=== PATIENT | female | born 1935 | race American Indian/Alaskan Native ===

== ENCOUNTER 2016-12-18 13:02 | Outpatient (CLI) | payer MEDICARE ==
[2016-12-18] MEDS ORDERED: XYLOCAINE TOPICAL 4% TP ONE ×2 (13:22→14:29)
== END 2016-12-18 13:03 | disposition home or self-care (01) ==
LOC: WOUND 13:02
PROVIDERS: ATTEND Surgery
DX: I87.2 Venous insufficiency (chronic) (peripheral) (principal); L97.821 Non-pressure chronic ulcer of other part of left lower leg limited to breakdown of skin; E11.622 Type 2 diabetes mellitus with other skin ulcer; I10 Essential (primary) hypertension; Z86.73 Personal history of transient ischemic attack (TIA), and cerebral infarction without residual deficits; Z90.710 Acquired absence of both cervix and uterus
CPT/HCPCS: 11042; G0463

== ENCOUNTER 2016-12-26 10:59 | Outpatient (CLI) | payer MEDICARE ==
[2016-12-26] MEDS ORDERED: XYLOCAINE TOPICAL 4% TP ONE ×2 (11:20)
== END 2016-12-26 11:00 | disposition home or self-care (01) ==
LOC: WOUND 10:59
PROVIDERS: ATTEND Podiatrist
DX: I87.312 Chronic venous hypertension (idiopathic) with ulcer of left lower extremity (principal); E11.622 Type 2 diabetes mellitus with other skin ulcer; L97.822 Non-pressure chronic ulcer of other part of left lower leg with fat layer exposed; Z86.73 Personal history of transient ischemic attack (TIA), and cerebral infarction without residual deficits; Z90.710 Acquired absence of both cervix and uterus

== ENCOUNTER 2016-12-26 13:25 | Outpatient (CLI) | payer MEDICARE | END 2016-12-26 13:26 | disposition home or self-care (01) | LOC: LAB 13:25 | PROVIDERS: ATTEND Surgery | DX: E11.9 Type 2 diabetes mellitus without complications (principal); I10 Essential (primary) hypertension | CPT/HCPCS: 36415; 83036 ==

== ENCOUNTER 2017-01-01 09:36 | Outpatient (CLI) | payer MEDICARE ==
[2017-01-01] MEDS ORDERED: XYLOCAINE TOPICAL 4% TP ONE ×2 (10:44)
== END 2017-01-01 09:37 | disposition home or self-care (01) ==
LOC: WOUND 09:36
PROVIDERS: ATTEND Nurse Practitioner
DX: I87.312 Chronic venous hypertension (idiopathic) with ulcer of left lower extremity (principal); E11.622 Type 2 diabetes mellitus with other skin ulcer; L97.822 Non-pressure chronic ulcer of other part of left lower leg with fat layer exposed; Z86.73 Personal history of transient ischemic attack (TIA), and cerebral infarction without residual deficits

== ENCOUNTER 2017-01-09 10:28 | Outpatient (CLI) | payer MEDICARE ==
[2017-01-09] MEDS ORDERED: XYLOCAINE TOPICAL 4% TP ONE (11:29)
== END 2017-01-09 10:29 | disposition home or self-care (01) ==
LOC: WOUND 10:28
PROVIDERS: ATTEND Podiatrist
DX: E11.622 Type 2 diabetes mellitus with other skin ulcer (principal); I87.312 Chronic venous hypertension (idiopathic) with ulcer of left lower extremity; I70.213 Atherosclerosis of native arteries of extremities with intermittent claudication, bilateral legs; L97.822 Non-pressure chronic ulcer of other part of left lower leg with fat layer exposed; S80.821A Blister (nonthermal), right lower leg, initial encounter; Z86.73 Personal history of transient ischemic attack (TIA), and cerebral infarction without residual deficits; X58.XXXD Exposure to other specified factors, subsequent encounter
CPT/HCPCS: 82962

== ENCOUNTER 2017-01-15 13:23 | Outpatient (CLI) | payer MEDICARE ==
[2017-01-15] MEDS ORDERED: XYLOCAINE TOPICAL 4% TP ONE ×2 (14:15→14:17)
== END 2017-01-15 13:24 | disposition home or self-care (01) ==
LOC: WOUND 13:23
PROVIDERS: ATTEND Nurse Practitioner
DX: I87.312 Chronic venous hypertension (idiopathic) with ulcer of left lower extremity (principal); L97.822 Non-pressure chronic ulcer of other part of left lower leg with fat layer exposed; E11.622 Type 2 diabetes mellitus with other skin ulcer; I70.213 Atherosclerosis of native arteries of extremities with intermittent claudication, bilateral legs; Z86.73 Personal history of transient ischemic attack (TIA), and cerebral infarction without residual deficits

== ENCOUNTER 2017-07-24 08:11 | Outpatient (CLI) | payer MEDICARE ==
[2017-07-24] MEDS ORDERED: XYLOCAINE TOPICAL 4% TP ONE (08:52)
== END 2017-07-24 08:12 | disposition home or self-care (01) ==
LOC: WOUND 08:11
PROVIDERS: ATTEND Podiatrist
DX: I70.248 Atherosclerosis of native arteries of left leg with ulceration of other part of lower leg (principal); E11.622 Type 2 diabetes mellitus with other skin ulcer; L97.822 Non-pressure chronic ulcer of other part of left lower leg with fat layer exposed; I10 Essential (primary) hypertension; Z86.73 Personal history of transient ischemic attack (TIA), and cerebral infarction without residual deficits
CPT/HCPCS: 11042; G0463

== ENCOUNTER 2017-07-29 13:27 | Outpatient (CLI) | payer MEDICARE ==
[2017-07-29] MEDS ORDERED: XYLOCAINE TOPICAL 4% TP ONE (14:02)
== END 2017-07-29 13:28 | disposition home or self-care (01) ==
LOC: WOUND 13:27
PROVIDERS: ATTEND Surgery
DX: I70.248 Atherosclerosis of native arteries of left leg with ulceration of other part of lower leg (principal); E11.622 Type 2 diabetes mellitus with other skin ulcer; L97.822 Non-pressure chronic ulcer of other part of left lower leg with fat layer exposed; I10 Essential (primary) hypertension; Z86.73 Personal history of transient ischemic attack (TIA), and cerebral infarction without residual deficits
CPT/HCPCS: 29580

== ENCOUNTER 2017-08-05 11:18 | Outpatient (CLI) | payer MEDICARE ==
[2017-08-05] MEDS ORDERED: XYLOCAINE TOPICAL 4% TP ONE (11:39)
== END 2017-08-05 11:19 | disposition home or self-care (01) ==
LOC: WOUND 11:18
PROVIDERS: ATTEND Surgery
DX: I70.248 Atherosclerosis of native arteries of left leg with ulceration of other part of lower leg (principal); E11.622 Type 2 diabetes mellitus with other skin ulcer; L97.822 Non-pressure chronic ulcer of other part of left lower leg with fat layer exposed; I10 Essential (primary) hypertension; Z86.73 Personal history of transient ischemic attack (TIA), and cerebral infarction without residual deficits
CPT/HCPCS: 29580

== ENCOUNTER 2017-08-26 10:47 | Outpatient (CLI) | payer MEDICARE ==
[2017-08-26] MEDS ORDERED: XYLOCAINE TOPICAL 4% TP ONE (11:29)
== END 2017-08-26 10:48 | disposition home or self-care (01) ==
LOC: WOUND 10:47
PROVIDERS: ATTEND Surgery
DX: I70.248 Atherosclerosis of native arteries of left leg with ulceration of other part of lower leg (principal); E11.622 Type 2 diabetes mellitus with other skin ulcer; L97.822 Non-pressure chronic ulcer of other part of left lower leg with fat layer exposed; I10 Essential (primary) hypertension; Z86.73 Personal history of transient ischemic attack (TIA), and cerebral infarction without residual deficits; Z90.710 Acquired absence of both cervix and uterus
CPT/HCPCS: 29580

== ENCOUNTER 2017-09-02 11:38 | Outpatient (CLI) | payer MEDICARE ==
[2017-09-02] MEDS ORDERED: XYLOCAINE TOPICAL 4% TP ONE ×2 (11:49→11:51)
== END 2017-09-02 11:39 | disposition home or self-care (01) ==
LOC: WOUND 11:38
PROVIDERS: ATTEND Surgery
DX: I70.248 Atherosclerosis of native arteries of left leg with ulceration of other part of lower leg (principal); E11.622 Type 2 diabetes mellitus with other skin ulcer; L97.822 Non-pressure chronic ulcer of other part of left lower leg with fat layer exposed; I10 Essential (primary) hypertension; Z86.73 Personal history of transient ischemic attack (TIA), and cerebral infarction without residual deficits; Z90.710 Acquired absence of both cervix and uterus
CPT/HCPCS: 29580

== ENCOUNTER 2017-09-09 11:11 | Outpatient (CLI) | payer MEDICARE ==
[2017-09-09] MEDS ORDERED: XYLOCAINE TOPICAL 4% TP ONE (11:38)
== END 2017-09-09 11:12 | disposition home or self-care (01) ==
LOC: WOUND 11:11
PROVIDERS: ATTEND Surgery
DX: I70.248 Atherosclerosis of native arteries of left leg with ulceration of other part of lower leg (principal); E11.622 Type 2 diabetes mellitus with other skin ulcer; L97.822 Non-pressure chronic ulcer of other part of left lower leg with fat layer exposed; I10 Essential (primary) hypertension; Z86.73 Personal history of transient ischemic attack (TIA), and cerebral infarction without residual deficits; Z90.710 Acquired absence of both cervix and uterus
CPT/HCPCS: 29580

== ENCOUNTER 2017-09-16 11:09 | Outpatient (CLI) | payer MEDICARE ==
[2017-09-16] MEDS ORDERED: XYLOCAINE TOPICAL 4% TP ONE ×2 (11:25→11:26)
== END 2017-09-16 11:10 | disposition home or self-care (01) ==
LOC: WOUND 11:09
PROVIDERS: ATTEND Surgery
DX: I70.248 Atherosclerosis of native arteries of left leg with ulceration of other part of lower leg (principal); E11.622 Type 2 diabetes mellitus with other skin ulcer; L97.822 Non-pressure chronic ulcer of other part of left lower leg with fat layer exposed; I10 Essential (primary) hypertension; Z86.73 Personal history of transient ischemic attack (TIA), and cerebral infarction without residual deficits; Z90.710 Acquired absence of both cervix and uterus
CPT/HCPCS: 29580

== ENCOUNTER 2017-09-23 11:22 | Outpatient (CLI) | payer MEDICARE | END 2017-09-23 11:23 | disposition home or self-care (01) | LOC: WOUND 11:22 | PROVIDERS: ATTEND Surgery | DX: I70.248 Atherosclerosis of native arteries of left leg with ulceration of other part of lower leg (principal); E11.622 Type 2 diabetes mellitus with other skin ulcer; L97.828 Non-pressure chronic ulcer of other part of left lower leg with other specified severity; I10 Essential (primary) hypertension; Z86.73 Personal history of transient ischemic attack (TIA), and cerebral infarction without residual deficits; Z90.710 Acquired absence of both cervix and uterus | CPT/HCPCS: 99214; G0463 ==

== ENCOUNTER 2019-05-05 09:27 | Outpatient (CLI) | payer MEDICARE | END 2019-05-05 09:28 | disposition home or self-care (01) | LOC: WOUND 09:27 | PROVIDERS: ATTEND Surgery | DX: E11.622 Type 2 diabetes mellitus with other skin ulcer (principal); L97.212 Non-pressure chronic ulcer of right calf with fat layer exposed; I10 Essential (primary) hypertension; Z86.73 Personal history of transient ischemic attack (TIA), and cerebral infarction without residual deficits; Z90.710 Acquired absence of both cervix and uterus | CPT/HCPCS: 11042; 11045; G0463; 82962; 99204; 99214 ==

== ENCOUNTER 2019-05-24 07:55 | Outpatient (CLI) | payer MEDICARE ==
[2019-05-24] MEDS ORDERED: LIDOCAINE (4%) 40 MG/ML TOPICAL SOLN 50 ML BOTTLE TP ONE (09:00)
== END 2019-05-24 07:56 | disposition home or self-care (01) ==
LOC: WOUND 07:55
PROVIDERS: ATTEND Surgery
DX: E11.622 Type 2 diabetes mellitus with other skin ulcer (principal); L97.212 Non-pressure chronic ulcer of right calf with fat layer exposed; I10 Essential (primary) hypertension; Z86.73 Personal history of transient ischemic attack (TIA), and cerebral infarction without residual deficits; Z90.710 Acquired absence of both cervix and uterus
CPT/HCPCS: 82962

== ENCOUNTER 2021-01-09 10:01 | Outpatient (CLI) | payer MEDICARE ==
[2021-01-09] MEDS ORDERED: LIDOCAINE (4%) 40 MG/ML TOPICAL SOLN 50 ML BOTTLE TP ONE (10:27)
[2021-01-09] MEDS ORDERED: SODIUM HYPOCHLORITE, DAKIN'S FULL STRENGTH (0.5%) 473 ML TOPICAL SOLN TP ONE (12:07)
== END 2021-01-09 10:02 | disposition home or self-care (01) ==
LOC: WOUND 10:01
PROVIDERS: ATTEND Surgery
DX: E11.622 Type 2 diabetes mellitus with other skin ulcer (principal); L97.812 Non-pressure chronic ulcer of other part of right lower leg with fat layer exposed; E11.621 Type 2 diabetes mellitus with foot ulcer; L97.422 Non-pressure chronic ulcer of left heel and midfoot with fat layer exposed; I11.0 Hypertensive heart disease with heart failure; I50.9 Heart failure, unspecified; Z86.73 Personal history of transient ischemic attack (TIA), and cerebral infarction without residual deficits; Z90.710 Acquired absence of both cervix and uterus; Z90.49 Acquired absence of other specified parts of digestive tract
CPT/HCPCS: 11042; 11045; G0463; 99214

== ENCOUNTER 2021-01-30 08:34 | Outpatient (CLI) | payer MEDICARE ==
[2021-01-30] MEDS ORDERED: LIDOCAINE (4%) 40 MG/ML TOPICAL SOLN 50 ML BOTTLE TP ONE (08:56)
[2021-01-30] MEDS ORDERED: SODIUM HYPOCHLORITE, DAKIN'S FULL STRENGTH (0.5%) 473 ML TOPICAL SOLN TP ONE (09:33)
[2021-01-30] MEDS ORDERED: SILVER NITRATE APPLICATOR 1 EA TP ONE (09:47)
== END 2021-01-30 08:35 | disposition home or self-care (01) ==
LOC: WOUND 08:34
PROVIDERS: ATTEND Surgery
DX: E11.622 Type 2 diabetes mellitus with other skin ulcer (principal); L97.812 Non-pressure chronic ulcer of other part of right lower leg with fat layer exposed; E11.621 Type 2 diabetes mellitus with foot ulcer; L97.422 Non-pressure chronic ulcer of left heel and midfoot with fat layer exposed; I11.0 Hypertensive heart disease with heart failure; I50.9 Heart failure, unspecified; Z86.73 Personal history of transient ischemic attack (TIA), and cerebral infarction without residual deficits; Z90.710 Acquired absence of both cervix and uterus; Z90.49 Acquired absence of other specified parts of digestive tract

== ENCOUNTER 2021-07-23 11:49 | Emergency (ER) | payer MEDICARE ==
[2021-07-23] MEDS ORDERED: HYDROmorphone 1 MG/1 ML INJ IM ONE (13:30)
[2021-07-23] MEDS ORDERED: MORPHINE 4 MG/1 ML INJ IM ONE (13:31)
--- NOTE | 2021-07-23 13:31 | Emergency Department Report ---
ED General Adult HPI - General Chief complaint: Psych Stated complaint: History obtained from family Time Seen by Provider: 07/23/21 12:51 Source: patient, family, EMS ([facility]), RN notes reviewed Mode of arrival: Stretcher Limitations: Altered Mental Status, Physical Limitation, Other (Patient is agitated and a poor historian) - History of Present Illness Initial comments: The patient is an 86-year-old female. She is accompanied by her son, Mr. Britton Levy; [phone] who provides the history of present illness. The patient's past medical history includes congestive heart failure, diabetes, hypertension, and "really bad infection in the foot.", As per the patient's son. The patient's son has been on [facility] for the past 3 weeks, and is currently on home antibiotics for a presumed infection in the right foot, but he does not know the name of the antibiotic. He also reports that the patient is currently a DO NOT RESUSCITATE. He brings the patient to the emergency room today because he reports the patient is agitated, and yelling. He also reports that she is itching and scratching. This has been going on for 2 weeks. He specifically reports that the patient has indicated in her goals of care that she does not want surgery or invasive measures. The patient's son is agreeable to comfort care, and supportive measures. He is also agreeable to basic laboratory studies here in the emergency room, as well as a noncontrast CT scan of the brain for work-up/evaluation. He reports that he does not want his mother to receive a straight catheter for urinalysis acquisition. The patient herself is disorganized, delirious, demented, and a poor historian. -: days(s), week(s) - Related Data Home Medications Medication Instructions Recorded Confirmed Last Taken Acetaminophen 650 mg PO QDAY PRN 07/23/21 07/23/21 Unknown Albuterol Sulfate 90 mcg INHALATION Q4HR 07/23/21 07/23/21 Unknown Amoxicillin 875 mg PO QDAY 07/23/21 07/23/21 Unknown Ativan 0.5 mg PO QDAY PRN 07/23/21 07/23/21 Unknown Atorvastatin 40 mg PO QHS 07/23/21 07/23/21 Unknown Bumetanide 2 mg tab 2 mg PO QDAY 07/23/21 07/23/21 Unknown Doxycycline Hyclate 100 mg PO QDAY 07/23/21 07/23/21 Unknown Haldol 0.05 mg PO QDAY PRN 07/23/21 07/23/21 Unknown Hydroxyzine HCl 50 mg PO QDAY 07/23/21 07/23/21 Unknown Hyoscyamine (Nf) 0.125 mg PO QDAY 07/23/21 07/23/21 Unknown Jardiance 10 mg SC DAILY 07/23/21 07/23/21 Unknown Klor-Con 10 40 mg PO QDAY 07/23/21 07/23/21 Unknown Melatonin 3 mg PO QHS PRN 07/23/21 07/23/21 Unknown Morphine 100 mg PO 07/23/21 Unknown Percocet 5/325 mg 5 mg PO QDAY PRN 07/23/21 07/23/21 Unknown Prednisone 20 mg PO 07/23/21 Unknown Promethazine 25 mg PO 07/23/21 Unknown Triamcinolone Acetonide 1 07/23/21 Unknown Xarelto 15 mg PO QDAY 07/23/21 07/23/21 Unknown amLODIPine 2.5 mg PO QDAY 07/23/21 07/23/21 Unknown bisacodyL 10 mg PO QDAY 07/23/21 07/23/21 Unknown Allergies Allergy/AdvReac Type Severity Reaction Status Date / Time grass pollen-perennial rye, Allergy Unknown Verified 07/23/21 11:54 standar [grass poll-perennial rye,std] house dust Allergy Shortness Verified 07/23/21 11:54 of Breath ED Review of Systems ROS: Stated complaint: EXCITED DELIRIUM Other details as noted in HPI Comment: Per family Constitutional: denies: fever Respiratory: denies: cough Cardiovascular: denies: syncope Gastrointestinal: denies: nausea, vomiting, diarrhea Genitourinary: denies: frequency Skin: rash, lesions Psychiatric: anxiety ED Past Medical Hx - Past Medical History Previous Medical History?: Yes Hx Hypertension: Yes Hx CVA: Yes Hx Diabetes: Yes - Surgical History Additional Surgical History: Removal of skin tags from body - Social History Smoking Status: Never Smoker Substance Use Type: None - Medications Home Medications: Home Medications Medication Instructions Recorded Confirmed Last Taken Type Acetaminophen 650 mg PO QDAY PRN 07/23/21 07/23/21 Unknown History Albuterol Sulfate 90 mcg INHALATION Q4HR 07/23/21 07/23/21 Unknown History Amoxicillin 875 mg PO QDAY 07/23/21 07/23/21 Unknown History Ativan 0.5 mg PO QDAY PRN 07/23/21 07/23/21 Unknown History Atorvastatin 40 mg PO QHS 07/23/21 07/23/21 Unknown History Bumetanide 2 mg tab 2 mg PO QDAY 07/23/21 07/23/21 Unknown History Doxycycline Hyclate 100 mg PO QDAY 07/23/21 07/23/21 Unknown History Haldol 0.05 mg PO QDAY PRN 07/23/21 07/23/21 Unknown History Hydroxyzine HCl 50 mg PO QDAY 07/23/21 07/23/21 Unknown History Hyoscyamine (Nf) 0.125 mg PO QDAY 07/23/21 07/23/21 Unknown History Jardiance 10 mg SC DAILY 07/23/21 07/23/21 Unknown History Klor-Con 10 40 mg PO QDAY 07/23/21 07/23/21 Unknown History Melatonin 3 mg PO QHS PRN 07/23/21 07/23/21 Unknown History Morphine 100 mg PO 07/23/21 Unknown History Percocet 5/325 mg 5 mg PO QDAY PRN 07/23/21 07/23/21 Unknown History Prednisone 20 mg PO 07/23/21 Unknown History Promethazine 25 mg PO 07/23/21 Unknown History Triamcinolone Acetonide 1 07/23/21 Unknown History Xarelto 15 mg PO QDAY 07/23/21 07/23/21 Unknown History amLODIPine 2.5 mg PO QDAY 07/23/21 07/23/21 Unknown History bisacodyL 10 mg PO QDAY 07/23/21 07/23/21 Unknown History ED Physical Exam - General Limitations: Other (Patient is agitated) General appearance: anxious - Head Head exam: Present: atraumatic, normocephalic - Eye Eye exam: Present: normal appearance, EOMI. Absent: nystagmus - ENT ENT exam: Present: normal exam, normal orophraynx, mucous membranes moist, norm al external ear exam - Neck Neck exam: Present: normal inspection, full ROM. Absent: tenderness, meningismus - Respiratory Respiratory exam: Absent: respiratory distress, wheezes, rales, rhonchi, stridor, decreased breath sounds - Cardiovascular Cardiovascular Exam: Present: bradycardia, irregular rhythm. Absent: systolic murmur, diastolic murmur, rubs, gallop - GI/Abdominal GI/Abdominal exam: Present: soft. Absent: distended, tenderness, guarding, rebound, rigid, pulsatile mass - Rectal Rectal exam: Present: other (Chaperoned by nurse Alejandrina Casey. Pressure ulcers noted. There is no necrosis noted. Gluteal compartments are tender). Absent: normal inspection - External exam: Present: normal external exam (Chaperoned by nurse Alejandrina Casye) - Extremities Exam Extremities exam: Present: full ROM. Absent: normal inspection (There is a large necrotic wound noted on the right posterior heel. Chronic venous stasis changes noted on the bilateral lower extremities. 2+ radial pulses bilaterally. 2+ femoral pulses bilaterally.) - Back Exam Back exam: Present: normal inspection. Absent: tenderness, CVA tenderness (R), CVA tenderness (L), paraspinal tenderness, vertebral tenderness - Neurological Exam Neurological exam: Present: altered (The patient is awake. The patient moves 4 extremities. The patient is yelling, and occasionally makes nonsensical statements) - Psychiatric Psychiatric exam: Present: anxious - Skin Skin exam: Present: warm, other (There is dry gangrene noted on the right posterior calcaneus. There is a pressure wound noted to the right calcaneus. There are pressure wounds noted to the gluteal cheeks.) ED Course Vital Signs 07/23/21 07/23/21 07/23/21 12:13 12:15 12:31 Temperature Pulse Rate 44 L 45 L 44 L Respiratory 16 13 14 Rate Blood Pressure 116/87 136/56 O2 Sat by Pulse 99 100 99 Oximetry 07/23/21 07/23/21 07/23/21 12:36 12:45 13:01 Temperature Pulse Rate Respiratory 22 40 H Rate Blood Pressure 136/56 138/85 O2 Sat by Pulse 100 100 100 Oximetry 07/23/21 07/23/21 07/23/21 13:15 13:31 13:33 Temperature 98.3 F Pulse Rate 43 L 41 L Respiratory 15 17 Rate Blood Pressure 138/85 98/44 O2 Sat by Pulse 98 96 Oximetry - Reevaluation(s) Reevaluation #1: 07/23/21 13:53 Differential diagnosis, include but not limited to: Osteomyelitis, delirium, encounter for advanced directives, thyroid derangement, electrolyte derangement, intracranial lesion Assessment and plan: 86-year-old female, likely experiencing natural history of dementia, multiple medical comorbidities, and right foot/heel osteomyelitis. Had extensive discussion with patient and nurse present regarding natural history of dementia, chronic medical comorbidities, and aforementioned infection. Patient son is adamant that surgery is not an option at this time, and is not interested in invasive measures, permanent pacemaker, or AICD. He is interested in comfort care measures, but does requests laboratory studies and CT scan of the brain here in the emergency room. I did staff counsel the patient's son that these tests would likely show dehydration, and chronic white matter disease, and would likely not change the patient's outcome. He does understand that her condition is likely terminal, and unless goals of care and advanced directives are reversed, she is unlikely to improve. Spent approximately 35 minutes with patient and nurse counseling him on goals of care, advanced directives, and obtaining history. Have also requested case management consultation to assist with home wound care. Currently awaiting case management evaluation 07/23/21 15:23 The patient is reassessed. She is resting comfortably. CT scan of the brain negative for acute findings. Laboratory studies unremarkable, mild renal insufficiency expected, hyperglycemia likely chronic. Home medications reviewed and appreciated. Seen and evaluated by case management. Because she is on home hospice, as per case management, she does not qualify for home wound care. Have therefore discussed with the patient's son to creek back with his home hospice team, and discussed up titration of anxiety and pain medication, and also to have home hospice address her chronic wounds. He articulates understanding, and he is satisfied with the current plan of care ED Medical Decision Making - Lab Data Result diagrams: 07/23/21 14:06 07/23/21 14:06 Vital Signs 07/23/21 07/23/21 07/23/21 12:13 12:15 12:31 Temperature Pulse Rate 44 L 45 L 44 L Respiratory 16 13 14 Rate Blood Pressure 116/87 136/56 O2 Sat by Pulse 99 100 99 Oximetry 07/23/21 07/23/21 07/23/21 12:36 12:45 13:01 Temperature Pulse Rate Respiratory 22 40 H Rate Blood Pressure 136/56 138/85 O2 Sat by Pulse 100 100 100 Oximetry 07/23/21 07/23/21 07/23/21 13:15 13:31 13:33 Temperature 98.3 F Pulse Rate 43 L 41 L Respiratory 15 17 Rate Blood Pressure 138/85 98/44 O2 Sat by Pulse 98 96 Oximetry Lab Results 07/23/21 07/23/21 07/23/21 Range/Units 14:06 14:06 14:06 WBC (4.5-11.0) K/mm3 RBC (3.65-5.03) M/mm3 Hgb (10.1-14.3) gm/dl Hct (30.3-42.9) % MCV (79-97) fl MCH (28-32) pg MCHC (30-34) % RDW (13.2-15.2) % Plt Count (140-440) K/mm3 Sodium 140 (137-145) mmol/L Potassium 4.4 (3.6-5.0) mmol/L Chloride 104.7 (98-107) mmol/L Carbon Dioxide 22 (22-30) mmol/L Anion Gap 18 mmol/L BUN 32 H (7-17) mg/dL Creatinine 1.3 H (0.6-1.2) mg/dL Estimated GFR 47 ml/min BUN/Creatinine Ratio 25 % Glucose 239 H (65-100) mg/dL Calcium 8.3 L (8.4-10.2) mg/dL Magnesium 2.00 (1.7-2.3) mg/dL Total Bilirubin (0.1-1.2) mg/dL Direct Bilirubin (0-0.2) mg/dL Indirect Bilirubin mg/dL AST (5-40) units/L ALT (7-56) units/L Alkaline Phosphatase (35-129) units/L Total Protein (6.3-8.2) g/dL Albumin (3.9-5) g/dL Albumin/Globulin Ratio % TSH (0.270-4.200) mlU/mL Salicylates < 0.3 L (2.8-20.0) mg/dL Acetaminophen 7.1 L (10.0-30.0) ug/mL Plasma/Serum Alcohol (0-0.07) % 07/23/21 07/23/21 07/23/21 Range/Units 14:06 14:06 14:06 WBC 10.3 (4.5-11.0) K/mm3 RBC 3.93 (3.65-5.03) M/mm3 Hgb 11.3 (10.1-14.3) gm/dl Hct 35.3 (30.3-42.9) % MCV 90 (79-97) fl MCH 29 (28-32) pg MCHC 32 (30-34) % RDW 20.5 H (13.2-15.2) % Plt Count 438 (140-440) K/mm3 Sodium (137-145) mmol/L Potassium (3.6-5.0) mmol/L Chloride (98-107) mmol/L Carbon Dioxide (22-30) mmol/L Anion Gap mmol/L BUN (7-17) mg/dL Creatinine (0.6-1.2) mg/dL Estimated GFR ml/min BUN/Creatinine Ratio % Glucose (65-100) mg/dL Calcium (8.4-10.2) mg/dL Magnesium (1.7-2.3) mg/dL Total Bilirubin (0.1-1.2) mg/dL Direct Bilirubin (0-0.2) mg/dL Indirect Bilirubin mg/dL AST (5-40) units/L ALT (7-56) units/L Alkaline Phosphatase (35-129) units/L Total Protein (6.3-8.2) g/dL Albumin (3.9-5) g/dL Albumin/Globulin Ratio % TSH 3.410 (0.270-4.200) mlU/mL Salicylates (2.8-20.0) mg/dL Acetaminophen (10.0-30.0) ug/mL Plasma/Serum Alcohol < 0.01 (0-0.07) % 07/23/21 Range/Units 14:06 WBC (4.5-11.0) K/mm3 RBC (3.65-5.03) M/mm3 Hgb (10.1-14.3) gm/dl Hct (30.3-42.9) % MCV (79-97) fl MCH (28-32) pg MCHC (30-34) % RDW (13.2-15.2) % Plt Count (140-440) K/mm3 Sodium (137-145) mmol/L Potassium (3.6-5.0) mmol/L Chloride (98-107) mmol/L Carbon Dioxide (22-30) mmol/L Anion Gap mmol/L BUN (7-17) mg/dL Creatinine (0.6-1.2) mg/dL Estimated GFR ml/min BUN/Creatinine Ratio % Glucose (65-100) mg/dL Calcium (8.4-10.2) mg/dL Magnesium (1.7-2.3) mg/dL Total Bilirubin 0.40 (0.1-1.2) mg/dL Direct Bilirubin 0.2 (0-0.2) mg/dL Indirect Bilirubin 0.2 mg/dL AST 22 (5-40) units/L ALT 17 (7-56) units/L Alkaline Phosphatase 210 H (35-129) units/L Total Protein 7.3 (6.3-8.2) g/dL Albumin 3.3 L (3.9-5) g/dL Albumin/Globulin Ratio 0.8 % TSH (0.270-4.200) mlU/mL Salicylates (2.8-20.0) mg/dL Acetaminophen (10.0-30.0) ug/mL Plasma/Serum Alcohol (0-0.07) % - EKG Data 07/23/21 13:53 The EKG is interpreted at 12: 16 Atrial flutter/fibrillation, variable conduction rate, ventricular rate 44 bpm. There is leftward axis, QTC is prolonged. This is an abnormal EKG. This is not a STEMI. - Radiology Data Radiology results: pending, report reviewed, image reviewed CT head/brain wo con INDICATION: agitation. TECHNIQUE: Routine CT head. All CT scans at this location are performed using CT dose reduction for ALARA by means of automated exposure control. COMPARISON: None. FINDINGS: Intracranial: Ruano-white matter differentiation is maintained. No intracranial hemorrhage. No extra axial collection. No hydrocephalus. No herniation. Sinuses: Paranasal sinuses and mastoid air cells are essentially clear. Orbits: Globes are intact. Calvarium: No acute fracture. IMPRESSION: 1. No acute intracranial abnormality. Signer Name: Isra Saenz MD Signed: 07/23/2021 1:24 PM Workstation Name: [id number] Critical Care Time: Yes Critical care time in (mins) excluding proc time.: 35 Critical care attestation.: If time is entered above; I have spent that time in minutes in the direct care of this critically ill patient, excluding procedure time. ED Disposition Clinical Impression: Case management patient, Non-healing wound of right heel, Buttock wound, Advanced directives, counseling/discussion, Bradycardia, Agitation, Dehydration Disposition: 01 HOME / SELF CARE / HOMELESS Is pt being admited?: No Does the pt Need Aspirin: No Condition: Fair Additional Instructions: Please continue home medications. Please continue home wound care. Recommend that patient son discuss escalating pain medication and anxiety medication with home hospice team. Recommend that home hospice team continue to address patient's chronic wounds. Recommend follow-up with your outpatient primary care doctor or palliative care doctor within the next week. Please return to the emergency room right away with new pain, worsened pain, migration of pain, projectile vomiting, change in mental status, confusion, inability tolerate liquid feeds, new, worsened or different symptoms not present on the initial emergency room evaluation Referrals: [facility] [Provider Group] - 3-5 Days Forms: Work/School Release Form(ED)
--- NOTE | 2021-07-23 14:28 | Cat Scan Report ---
CT head/brain wo con INDICATION: agitation. TECHNIQUE: Routine CT head. All CT scans at this location are performed using CT dose reduction for A LYN by means of automated exposure control. COMPARISON: None. FINDINGS: Intracranial: Ruano-white matter differentiation is maintained. No intracranial hemorrhage. No extra a xial collection. No hydrocephalus. No herniation. Sinuses: Paranasal sinuses and mastoid air cells are essentially clear. Orbits: Globes are intact. Calvarium: No acute fracture. IMPRESSION: 1. No acute intracranial abnormality. Signer Name: Isra Saenz MD Signed: 07/23/2021 2:24 PM Workstation Name: [id number]
[2021-07-23 14:40] LABS: Hematocrit 35.3 % (30.3-42.9); Hemoglobin 11.3 gm/dl (10.1-14.3); Mean Corpuscular HGB Conc 32 % (30-34); Mean Corpuscular Volume 90 fl (79-97); Platelet Count 438 K/mm3 (140-440); Red Blood Count 3.93 M/mm3 (3.65-5.03); Red Cell Distribution Width 20.5 % (13.2-15.2)
[2021-07-23 15:01] LABS: Albumin 3.3 g/dL (3.9-5); Bilirubin,Direct 0.2 mg/dL (0-0.2); Calcium 8.3 mg/dL (8.4-10.2)
[2021-07-23 22:04] VITALS: BP 136/52
--- NOTE | 2021-07-26 18:40 | Electrocardiograph Report ---
[facility] Test Date: 2021-07-23 Test Time: 12:16:07 Pat Name: ARIA SALOMON Department: Room: Gender: F Lending Manager: TV : 1935 Requested By: CHERI MULLINS Order Number: [id number] Reading MD: Avni Gallardo Measurements Intervals [place] Rate: 44 P: VA: QRS: 108 QRSD: 136 T: 3 QT: 590 QTc: 507 Interpretive Statements A-flutter/fibrillation MARKED PATEL RBBB and LPFB Prolonged QT interval No previous ECG available for comparison Electronically Signed On 07-26-2021 18:39:35 EDT by Avni Gallardo
== END 2021-07-23 22:34 | disposition home or self-care (01) ==
LOC: ED 11:49
DX: R45.1 Restlessness and agitation (principal); S91.301A Unspecified open wound, right foot, initial encounter; S31.809A Unspecified open wound of unspecified buttock, initial encounter; E86.0 Dehydration; I11.0 Hypertensive heart disease with heart failure; I50.9 Heart failure, unspecified; F03.90 Unspecified dementia, unspecified severity, without behavioral disturbance, psychotic disturbance, mood disturbance, and anxiety; E11.9 Type 2 diabetes mellitus without complications; Z86.73 Personal history of transient ischemic attack (TIA), and cerebral infarction without residual deficits; R00.1 Bradycardia, unspecified; X58.XXXA Exposure to other specified factors, initial encounter; Y93.89 Activity, other specified; Y92.89 Other specified places as the place of occurrence of the external cause; Y99.8 Other external cause status
CPT/HCPCS: 36415; 70450; 80048; 80076; 83735; 84443; 85027; 93005; 96372; 99284; J2270; 80320; G0480